=== PATIENT | female | born 1995 | race Two or more races ===

== ENCOUNTER → 2017-10-20 | Outpatient (CLI) | payer OTHER | LOC: LAB 14:25 | PROVIDERS: ATTEND Obstetrics & Gynecology | DX: Z34.91 Encounter for supervision of normal pregnancy, unspecified, first trimester (principal) | CPT/HCPCS: 36415; 81001; 86592; 86703; 86762; 86850; 86900; 86901; 87088; 87340 ==

== ENCOUNTER → 2017-10-28 | Outpatient (CLI) | payer OTHER | LOC: LAB 14:35 | PROVIDERS: ATTEND Student in an Organized Health Care Education/Training Program | DX: Z34.91 Encounter for supervision of normal pregnancy, unspecified, first trimester (principal) | CPT/HCPCS: 36415; 85027; 87491; 87591 ==

== ENCOUNTER → 2018-01-12 | Outpatient (CLI) | payer OTHER ==
[~2018-01-12] MED LIST: FLU60VIA41 IM
--- NOTE | 2018-01-12 15:28 | RADIOLOGY IMAGING REPORT ---
FACILITY: [facility] PATIENT NAME: Geni Ray : 1995 MR: [id number] V: [id number] EXAM DATE: ORDERING PHYSICIAN: NILS HOUSE TECHNOLOGIST: Location: [facility] Patient: Geni Ray : 1995 Visit/Account:[id number] Date of Sevice: 01/12/2018 [facility] OB ANATOMICAL SURVEY INDICATION: supervision COMPARISON: None available FINDINGS: There is a single, living, intrauterine gestation in vertex position with heart rate of 155 bpm. The placenta is posterior without previa. JESÚS 12 cm, largest pocket 3.6 cm. BPD 4.9 cm, 21 weeks zero days Head circumflex conference 18.5 cm, 21 weeks zero days Abdominal circumference 15.5 cm, 20 weeks five days Femur length 3.3 cm, 20 weeks three days Estimated gestational age based on ultrasound 20 weeks six days. Estimated gestational age based on last menstrual period 20 weeks four days. Estimated weight 362 g. Normal outflow tracts, normal four-chamber heart view, normal stomach, normal bladder, expected three -vessel cord, normal kidneys, four extremities visualized, normal cord insertion, normal intracranial structures, normal facial profile, and normal spine. IMPRESSION: Single, living, intrauterine gestation at 20 weeks six days based on ultrasound. Estimated gestation al age based on last menstrual period is 20 weeks four days. Normal anatomic survey. Posterior placenta without previa. Report Dictated By: Nate Villatoro MD at 01/12/2018 3:21 PM Report E-Signed By: Nate Villatoro MD at 01/12/2018 3:25 PM WSN:TEGAN
== END ==
LOC: US 09:52
PROVIDERS: ATTEND Student in an Organized Health Care Education/Training Program
DX: Z02.9 Encounter for administrative examinations, unspecified (principal)

== ENCOUNTER → 2018-03-18 | Outpatient (CLI) | payer OTHER ==
[~2018-03-18] MED LIST changes: +DIPH0.5D12 IM
[2018-03-18 11:23] LABS: PLATELET COUNT, AUTOMATED 256 K/uL (150-450)
== END ==
LOC: LAB 09:24
PROVIDERS: ATTEND Student in an Organized Health Care Education/Training Program
DX: Z34.92 Encounter for supervision of normal pregnancy, unspecified, second trimester (principal)
CPT/HCPCS: 36415; 82950; 85025

== ENCOUNTER → 2018-03-19 | Outpatient (CLI) | payer OTHER | LOC: LAB 07:40 | PROVIDERS: ATTEND Student in an Organized Health Care Education/Training Program | DX: O99.810 Abnormal glucose complicating pregnancy (principal) | CPT/HCPCS: 36415; 82951; 82952 ==

== ENCOUNTER → 2018-05-05 | Outpatient (CLI) | payer OTHER ==
[~2018-05-05] MED LIST changes: +PREN-127 PO
== END ==
LOC: LAB 15:47
PROVIDERS: ATTEND Advanced Practice Midwife
DX: Z36.85 Encounter for antenatal screening for Streptococcus B (principal)
CPT/HCPCS: 87081

== ENCOUNTER 2018-05-14 05:59 | Inpatient (IN) | payer OTHER ==
[~2018-05-14] VITALS: Ht 157.5 cm; Wt 68.0 kg
[2018-05-14 06:20] VITALS: BP 130/84; Ht 157.5 cm; Wt 68.0 kg
[2018-05-14] MEDS ORDERED: OXYTOCIN 30 UNIT/D5LR 500 ML 500 ML ONE (06:31)
[2018-05-14] MEDS ORDERED: LIDOCAINE 1% LOCAL 300 MG/30ML INJ PRN (06:35)
[2018-05-14] MEDS ORDERED: METOCLOPRAMIDE 10 MG/2 ML SDV IVP PRN (06:35)
[2018-05-14] MEDS ORDERED: fentaNYL CITR 100 MCG/2 ML AMP IVP PRN (06:35)
[2018-05-14] MEDS ORDERED: OXYTOCIN 30 UNIT/D5LR 500 ML 500 ML IV PRN ×2 (06:35→06:48)
[2018-05-14] MEDS ORDERED: FAMOTIDINE(*) 20MG/50ML PREMIX 50 ML IVPB PRN (06:35)
[2018-05-14] MEDS ORDERED: LIDOCAINE/SOD BICARB 8.4% SYR SC PRN (06:35)
[2018-05-14] MEDS ORDERED: ceFAZolin(*) 2GM/D5W 50ML 50 ML IVPB PRN (06:35)
[2018-05-14] MEDS ORDERED: ACETAMINOPHEN 500 MG TAB PO PRN (06:50)
[2018-05-14] MEDS ORDERED: CALCIUM CARBONATE 500 MG CHEW PO PRN (06:50)
[2018-05-14] MEDS ORDERED: ONDANSETRON 4 MG/2 ML VIAL IVP PRN (06:50)
[2018-05-14] MEDS: LR(*) 1000 ML BAG 1,000 ML IV PRN ×2 (06:52→08:57)
[2018-05-14 07:06] LABS: PLATELET COUNT, AUTOMATED 243 K/uL (150-450)
[2018-05-14] MEDS ORDERED: LIDO/EPI 2% MPF 1:200,000 20ML EPI PRN (07:15)
[2018-05-14] MEDS ORDERED: FENTANYL/ROPIVACAINE 100 ML BAG EPI PRN (07:15)
[2018-05-14] MEDS ORDERED: BUPIVACAINE 0.5% INJ 30ML VIAL EPI PRN (07:15)
[2018-05-14] MEDS ORDERED: LIDOCAINE/PF 2% 200MG/10ML AMP 200 MG/10 ML AMPUL EPI PRN (07:15)
[2018-05-14] MEDS ORDERED: fentaNYL CITR 100 MCG/2 ML AMP IT PRN (07:15)
[2018-05-14] MEDS ORDERED: BUPIVACAINE 0.25% MPF INJ EPI PRN (07:15)
--- NOTE | 2018-05-14 09:11 | Anesthesia OB Pre-Anes Eval ---
History of Present Illness Anesthesia Start Date: May 14, 2018 Anesthesia Start Time: 08:28 OB Anesthesia Diagnosis: spontaneous labor EDC: May 28, 2018 : 1 Para: 0 Vital Signs: Vital Signs Date Time Temp Pulse Resp B/P (MAP) Pulse Ox O2 Delivery O2 Flow Rate FiO2 05/14/18 06:20 98.0 80 18 130/84 (99) 95 Room Air Pain Ratin Result Diagram: 05/14/18 0641 Height (Inches): 62.00 Weight (Pounds): 150 Past Medical History Medical History: no pertinent history Surgical History: no surgical history Attended Childbirth Classes?: No Hx Anesthesia Reactions: No Hx Family Anesthesia Reaction: No Current Medications: pitocin Home Meds Reported Medications Vits W-Ca,Fe,Fa(<1MG) ( VITAMINS) 1 Each Tablet, 1 EACH PO DAILY, TAB 05/05/18 Allergies: Coded Allergies: aspirin (Unverified Allergy, Mild, Facial swelling, 10/20/17) Anesthesia OB ROS Neurological: No migraines/headaches, No seizures, No neuropathy, No other ENT: Denies Tooth caps, Denies Loose teeth, Denies Chipped teeth, Denies Dentures, Denies Bridges, Denies Retainers, Denies Veneers, Denies Implants, Denies Tongue ring, Denies Other Pulmonary: No asthma, No smoker (pks/day/yrs), No other Airway Class: ll Cardiovascular ROS: No edema, No arrhythmia, No other GI ROS: clear liquids ROS: No Herpes, No STD(s), No Liver Disease, No Renal Disease, No Other Endocrine ROS: No diabetes, No gestational diabetes, No thyroid disorder, No other Musculoskeletal ROS: No low back pain, No low back injury, No scoliosis, No other ASA Classification: 1 Assessment and Plan Anesthesia Plan: CHANDU LORENZANA CRNA May 14, 2018 09:11
--- NOTE | 2018-05-14 09:12 | Procedure Note ---
Anesthetic Placement Note Anesthesia Plan: LEB Permit for Anesthesia Signed: Yes Anesthesia Technique: Patient Sitting Anesthesia Prep: Chlorhexidine Interspace: L 4-5 Local Anesthetic: 1% Lidocaine, 25 Gauge Needle Amount Local - cc's: 3 Anesthesia Needle: 17g Touhy/Schliff Anesthesia Attempts: 1 Loss of Resistance: Normal Saline Depth of GINI (cm): 5 Epidural Needle Placement: No CSF, No Blood, No Parasthesia Intrathecal Needle: 27 Gauge Pencan Cerebral Spinal Fluid: Yes, Clear Catheter Insertion (cm): 5 Catheter Type: Harmon - Spring Wound Epidural Dressing: Tegaderm, Tape Anesthesia Tray: Lot Number ([id number]), Expiration Date (11/01/2019), Reference Number ([id number]) CHANDU POWER CRNA May 14, 2018 09:12
--- NOTE | 2018-05-14 10:04 | History & Physical ---
History of Present Illness Age of Patient: 22 : 1 Para or TPAL: 0 EDC per LMP: May 28, 2018 Estimated Gestational Age: 38 Chief Complaint Pt reports a gush of fluid and clear leaking of clear fluid starting at 3:30 this am, with some contractions, but nothing too painful. Good FM and no VB. Denies GRUBBS, vision changes or RUQ pain. Her Matti is here and very supportive. Her plan is for an epidural. History Patient's Blood Type: O Positive Rubella Status: Immune Group B Strep Screen: Negative Allergies: Coded Allergies: aspirin (Unverified Allergy, Mild, Facial swelling, 10/20/17) Social History: Denies alcohol, smoking, or illicit drugs including marijuana. Family History: Patient reports no known family medical history. Med Rec Home Meds Reported Medications Vits W-Ca,Fe,Fa(<1MG) ( VITAMINS) 1 Each Tablet, 1 EACH PO DAILY, TAB 05/05/18 Review of Systems Neurological: No Dizziness Eyes: No Vision Change Cardiovascular: No Chest Pain Respiratory: No Shortness of Breath Gastrointestinal: No Nausea, No Vomiting, No Diarrhea Musculoskeletal: Pain (mild uterine contraction pain on admit) Psychiatric: No Depression, No Anxiety Exam General Exam Vital Signs Vital Signs Date Time Temp Pulse Resp B/P (MAP) Pulse Ox O2 Delivery O2 Flow Rate FiO2 05/14/18 06:20 98.0 80 18 130/84 (99) 95 Room Air General Apperance: Alert/Awake/No Acute Distress Neuro: No Gross deficits Eyes: Normal Extraocular Movement & Vison ENT: Normal Cardiovascular: Regular Rate and Rhythm Respiratory: No Respiratory Distress, Clear to Auscultation Abdomen: Gravid - Non-Tender, RUQ Non-Tender : Normal Musculoskeletal: No Weakness/Pain Extremities: No Cyanosis,Clubbing or Edema Integumentary: Skin Intact without Lesions or Rash Psychological: Alert & Oriented X3, Appropriate Mood & Affect Cervical Dialation: 5 Cervical Effacement (%): 80 Cervical Consistency: Soft Cervical Position: Mid Station: -1 Presentation: Vertex Uterine Contractions(Q min): 3 Uterine Contraction Strength: Moderate Fetus Feeling Movement?: Yes Estimated Weight(grams): 3000 Heart Tones: 140 Heart Tone Variabilty: Moderate FHT Accelerations: 15X15 FHT Decelerations: Early, Variable (rapid return to baseline) FHT Category: II Medical Decision Making Data Points Result Diagram: 05/14/18 0641 Assessment and Plan Hospital Day: 1 ENVIRONMENTAL ECONOMIST Assessment: Stable ENVIRONMENTAL ECONOMIST Plan: Routine Labor/Induct Care Problems: (1) ROM (rupture of membranes), premature Onset Date: ~ 05/07/2018 Status: Acute Assessment & Plan: Assessment/Plan: GABY is a 22 y.o. at 38w0d wks with an Estimated Date of Delivery: 05/28/18 dated by first trimester US. She was admitted this am for SROM for clear fluid at home at 3:30am and was started on Pitocin to promote labor progression Labor state: Approaching active labor, good cervical change since admit. Encourage position changes with peanut ball for descent. Continue Pitocin titration for adequate contraction pattern and cervical change well-being: Category II FHT for recurrent variables and early dec elerations. Continuous monitoring for epidural and Pitocin. Fluid bolus and maternal oxygen PRN Maternal well-being: VSS, normotensive, afebrile, SROM at home at 3:30am for moderate amount of clear fluid with continued leaking. PNL: GBS neg, Type/Rh O+, rubella immune Pain Management: Pt requests ISABEL for pain management, completely comfortable after placement, aromatherapy in room Feed: Breast PPBCM: Unsure at this time, but they are contemplating the Mirena or Kayleena IUD c/b: none Anticipate , re-evaluate in 2-3 hours or PRN Problem Qualifiers (1) ROM (rupture of membranes), premature: PROM onset of labor timing: onset of labor within 24 hours of rupture PROM gestational age: full term Qualified Codes: O42.02 - Full-term premature ru pture of membranes, onset of labor within 24 hours of rupture ML DICKERSON CNM May 14, 2018 10:04
--- NOTE | 2018-05-14 11:12 | Labor Progress Note ---
Labor Subjective Progress Notes Subjective Pt and are trying to rest. Called to room for evaluation after a prolonged deceleration. FHR back to baseline after responding well to maternal oxygen and fluid bolus. Pt feeling some pelvic pressure, but not continuous. Feeling Movement?: Yes Vaginal Discharge/Fluid: Bloody Show, Clear Fluid, Moderate Amount Labor Pain: Comfortable Neurological: No Headache Eyes: No Visual Disturbances Labor Objective Vital Signs Vital Signs Date Time Temp Pulse Resp B/P (MAP) Pulse Ox O2 Delivery O2 Flow Rate FiO2 05/14/18 06:20 98.0 80 18 130/84 (99) 95 Room Air Vaginal Discharge/Fluid?: Bloody Show, Clear Fluid, Small Amount Cervical Dialation: 7 Cervical Effacement (%): 90 Cervical Consistency: Soft Cervical Position: Anterior Station: 0 Presentation: Vertex Uterine Contractions(Q min): 3 Uterine Contraction Strength: Strong UC Resting Tone: Soft Fetus Estimated Weight(grams): 3000 Heart Tones: 140 Heart Tone Variabilty: Moderate FHT Accelerations: Present, 15X15 FHT Decelerations: Early, Variable, Prolonged (return to baseline after maternal oxygen, fluid bolus and position change) FHT Category: II General Exam General Appearance: Alert/Awake/No Acute Distress : Normal Psychological: Alert & Oriented X3, Appropriate Mood & Affect Other Result Diagram: 05/14/18 0641 Assessment and Plan Problems: (1) ROM (rupture of membranes), premature Onset Date: ~ 05/07/2018 Status: Acute Assessment & Plan: Assessment/Plan: GABY is a 22 y.o. at 38w0d wks with an Estimated Date of Delivery: 05/28/18 dated by first trimester US. She was admitted this am for SROM for clear fluid at home at 3:30am and was started on Pitocin to promote labor progression Labor state: Active labor, rapid cervical change in 1 hour. Continue to encourage position changes with peanut ball for descent. Continue Pitocin titration for adequate contraction pattern well-being: Category II FHT for recurrent variables and early decelerations. One prolonged deceleration, but recovered well with maternal oxygen, fluid bolus and position change. Continuous monitoring for e pidural and Pitocin. Fluid bolus and maternal oxygen PRN Maternal well-being: VSS, normotensive, afebrile, SROM at home at 3:30am for moderate amount of clear fluid with continued leaking. PNL: GBS neg, Type/Rh O+, rubella immune Pain Management: Comfortable with ISABEL, aromatherapy in room Feed: Breast PPBCM: Unsure at this time, but they are contemplating the Mirena or Kayleena IUD c/b: none Anticipate , re-evaluate in 2-3 hours or PRN Problem Qualifiers (1) ROM (rupture of membranes), premature: PROM onset of labor timing: onset of labor within 24 hours of rupture PROM gestational age: full term Qualified Codes: O42.02 - Full-term premature ru pture of membranes, onset of labor within 24 hours of rupture ML DICKERSON CNM May 14, 2018 11:12
--- NOTE | 2018-05-14 11:22 | Anesthesia Progress Note ---
Progress/Maintenance Anesthesia Note Date: May 14, 2018 Anesthesia Note Time: 11:21 Pain Intensity: 0 Pump: On Pump Rate (ML/HR): 6 Sensory Level: T10 Motor Level: Bending Knees-Bilateral Dilatation: 7 Position: Right, Tilt Assessment and Plan Anesthesia Plan: CHANDU LORENZANA CRNA May 14, 2018 11:22
--- NOTE | 2018-05-14 14:13 | Anesthesia Progress Note ---
Progress/Maintenance Anesthesia Note Date: May 14, 2018 Anesthesia Note Time: 14:12 Pain Intensity: 0 Pump: Off Assessment and Plan Anesthesia Plan: LEB Anesthesia Stop Day: May 14, 2018 Anesthesia Stop Time: 13:43 CHANDU POWER CRNA May 14, 2018 14:13
--- NOTE | 2018-05-14 14:13 | OB Delivery Note ---
Delivery Note Vaginal Delivery Type: Spont. Vaginal Delivery Delivery Date: May 14, 2018 Delivery Time: 13:43 Estimated Gestational Age(wks): 38 Delivery Anesthesia: Epidural Sex: Male Infant Weight (gms): 3020 Mason Apgars: 1 Minute, 5 Minute Repair Needed: Laceration, Vaginal, 2nd Degree Notes: AN is a 22 y/o G1 now P1 @ 38 0/7 by first trimester US with an SID of 05/28/18 who was admitted to the family care unit on 05/14/18 @ 630 am after SROM at home for a clear large amount of fluid with continued leaking after that point. Contractions started shortly after, but were mild and irregular. Pitocin was started and titrated to increase frequency and intensity of contraction pattern. Cervical exam on admission was /-2 by the RN. Pt was GBS neg. FHR was CAT I primarily throughout first stage, with periods of CAT II due to recurrent variables with contractions. Pt utilized continuous lumbar epidural primarily for pain management. Pt was completely dilated on 05/14/18 at 1306 and pt began pushing at that time with excellent maternal effort and descent. At 1343 pt had a NSVB of live male with APGARs 7/8, weighing 3020g. The head delivered spontaneously in the OA position and restituted GER with no nuchal cord. The anterior shoulder was delivered a traumatically and the posterior shoulder followed. Body delivered easily. Face was wiped with nose and bulb suction and then placed on the maternal abdomen. The was dried and stimulated and noted to have a quiet spontaneous cry and spontaneous movement of all 4 extremities. Baby was stimulated and noted to have good tone, but not much of a cry. The cord was then clamped X 2 by CNM at 3 minutes and cut by patient's spouse, so baby could be brought to the warmer to be assessed. Mother was in SF position. At 1349 the placenta and membranes delivered spontaneous and intact with a 3 vessel cord after gentle downward traction. 30 units of Pitocin was placed in 500cc IV to firm the uterus and started immediately after placenta delivery. Upon inspection of the perineum a second degree vaginal laceration was noted and repaired using 3-0 Vicryl under ISABEL. Hemostasis observed.EBL 250 with fundus firm with minimal bleeding. Mom and baby were skin to skin in stable condition when I left the room. "I personally examined the patient and there are no unintended foreign objects in the vagina and all sponge, needle and lap counts were correct." Rosana Unger CNM was present throughout the entire delivery as well as Dr. Jatin Nuno. Shop And Alteration Tailor in Attendence: ROSANA Sheets CNM May 14, 2018 14:13
--- NOTE | 2018-05-14 14:14 | Labor Progress Note ---
Labor Subjective Progress Notes Subjective Pt just delivered. Feeling Movement?: Yes Vaginal Discharge/Fluid: Clear Fluid Labor Pain: Mild Neurological: No Headache, No Other Eyes: No Visual Disturbances Labor Objective Vital Signs Vital Signs Date Time Temp Pulse Resp B/P (MAP) Pulse Ox O2 Delivery O2 Flow Rate FiO2 05/14/18 06:20 98.0 80 18 130/84 (99) 95 Room Air Cervical Dialation: 10 Cervical Effacement (%): 100 Cervical Consistency: Soft Cervical Position: Anterior Station: +3 Presentation: Vertex Other Result Diagram: 05/14/18 0641 Assessment and Plan Problems: (1) ROM (rupture of membranes), premature Onset Date: ~ 05/07/2018 Status: Acute Assessment & Plan: I was present for Delivery by Mckenna Unger CNM.. Live born male infant. Problem Qualifiers (1) ROM (rupture of membranes), premature: PROM onset of labor timing: onset of labor within 24 hours of rupture PROM gestational age: full term Qualified Codes: O42.02 - Full-term premature rupture of membranes, onset of labor within 24 hours of rupture NILS HOUSE DO May 14, 2018 14:14
[2018-05-14] MEDS ORDERED: BENZOCAINE 20% 60 ML BTL TP PRN (14:15)
[2018-05-14] MEDS ORDERED: APAP/HYDROCODONE 325/5 TAB PO PRN (14:15)
[2018-05-14] MEDS ORDERED: LANOLIN OINT 7 GM TUBE TP PRN (14:15)
[2018-05-14] MEDS ORDERED: HYDROCORTISONE 2.5% CR 30GM TB PR PRN (14:15)
[2018-05-14] MEDS ORDERED: MAGNESIUM HYDROXIDE* 30ML UDCP PO PRN (14:15)
[2018-05-14] MEDS ORDERED: GLYCERIN/WITCH HAZEL LEAF 1 PK TP PRN (14:15)
[2018-05-14] MEDS: ACETAMINOPHEN 325 MG TAB PO PRN (15:07)
[2018-05-14 15:36] VITALS: BP 127/74
[2018-05-14] MEDS: IBUPROFEN 800 MG TAB PO SCH (17:03)
[2018-05-14 19:23] VITALS: BP 126/61
[2018-05-14] MEDS: DOCUSATE CALCIUM 240 MG CAP PO SCH (20:30)
[2018-05-14 22:57] VITALS: BP 129/68
[2018-05-15] MEDS: IBUPROFEN 800 MG TAB PO SCH ×3 (01:58→18:05)
[2018-05-15 03:02] VITALS: BP 129/68
[2018-05-15 09:00] VITALS: BP 121/77
[2018-05-15] MEDS ORDERED: DIPHTH/TETANUS/ACEL. PERTUSSIS IM ONLY ONE (09:00)
[2018-05-15] MEDS ORDERED: INFLUENZA VIRUS VAC 0.5ML SYR IM ONLY ONE (09:00)
[2018-05-15] MEDS ORDERED: MEASLES,MUMP,RUBELLA VAC 0.5ML SUBQ ONE (09:00)
[2018-05-15] MEDS: DOCUSATE CALCIUM 240 MG CAP PO SCH (09:09)
--- NOTE | 2018-05-15 09:14 | Anesthesia Post Eval Note ---
Anesthesia Post Eval Note Vital Signs Date Time Temp Pulse Resp B/P (MAP) Pulse Ox O2 Delivery O2 Flow Rate FiO2 05/15/18 03:02 97.3 70 15 129/68 (88) 97 Room Air Pt able to participate in Eval: Yes Cardiovascular Status: Satisfactory Respiratory Status: Satisfactory Pain Managment: Satisfactory PO Nausea/Vomiting: Satisfactory Temperature Management: Satisfactory Mental Status: Satisfactory, Alert, Oriented X3 Post-Op Hydration Status: Satisfactory, Tolerating PO Well, Voiding w/o Difficulty Anesthesia Type: LEB Anesthesia Tolerance: no complications noted. CHANDU POWER CRNA May 15, 2018 09:14
--- NOTE | 2018-05-15 10:26 | OB/GYN Progress Note ---
OB Subjective Progress Notes GI: POS Flatus; NEG Nausea, NEG Vomiting, NEG Bowel Movement : Voiding Well, Vaginal Bleeding, Moderate Pain: Mild Neurological: No Headache Eyes: No Visual Disturbances OB Objective Physical Exam Vital Signs Date Time Temp Pulse Resp B/P (MAP) Pulse Ox O2 Delivery O2 Flow Rate FiO2 05/15/18 09:00 97.7 90 16 121/77 (92) 96 Room Air Intake and Output 05/15/18 07:00 Intake Total 1620 ml Output Total 1400 ml Balance 220 ml Intake Oral 220 ml IV Total 1400 ml Output Urine Total 1400 ml # Voids 3 General Appearance: Alert/Awake/No Acute Distress Neurological: No Gross deficits Eyes: Normal Extraocular Movement & Vison Respiratory: No Respiratory Distress : Normal Extremities: No Cyanosis,Clubbing or Edema Integumentary: Skin Intact without Lesions or Rash Psychological: Alert & Oriented X3, Appropriate Mood & Affect Result Diagram: 05/15/18 0605 Assessment and Plan Problems: (1) ROM (rupture of membranes), premature Onset Date: ~ 05/07/2018 Status: Resolved (2) (normal spontaneous vaginal delivery) Status: Resolved (3) Second degree perineal laceration during delivery Assessment & Plan: Healing well with good approximation. Encouraged to use genesis bottle and dabbing when wiping and use ibuprofen for pain. (4) care and examination Problem Qualifiers (1) ROM (rupture of membranes), premature: PROM onset of labor timing: onset of labor within 24 hours of rupture PROM gestational age: full term Qualified Codes: O42.02 - Full-term premature rupture of membranes, onset of labor within 24 hours of rupture ML DICKERSON CNM May 15, 2018 10:26
[2018-05-15 13:12] VITALS: BP 118/76
[2018-05-15 16:40] VITALS: BP 124/84
[2018-05-15 19:30] VITALS: BP 123/71
[2018-05-15 23:10] VITALS: BP 131/86
[2018-05-16] MEDS: IBUPROFEN 800 MG TAB PO SCH ×2 (02:45→09:24)
[2018-05-16 02:47] VITALS: BP 119/63
[2018-05-16 07:40] VITALS: BP 121/73
[2018-05-16] MEDS ORDERED: DOCU240C67 PO (08:43)
[2018-05-16] MEDS ORDERED: LOR5/325 PO (08:43)
[2018-05-16] MEDS ORDERED: IBUP800T37 PO (08:43)
[2018-05-16] MEDS: DOCUSATE CALCIUM 240 MG CAP PO SCH ×2 (09:00→09:04)
[2018-05-16] MEDS: ACETAMINOPHEN 325 MG TAB PO PRN (09:04)
--- NOTE | 2018-05-16 09:12 | OB/GYN Progress Note ---
OB Subjective Progress Notes Subjective Ms. Ray reports that she is feeling well this am. She reports that is going well. She states that she is having mild cramping, relieved with ibuprofen. She denies having perineal pain. She reports that her mood is good. Denies symptoms of post- depression. Plan is for Alexander () to have circumcision today. His bilirubin levels are also being monitored. He may be able to go home today. If not, Ms. Ray and her would like to room-in with him. GI: POS Flatus; NEG Nausea, NEG Vomiting, NEG Bowel Movement : Voiding Well, Vaginal Bleeding, Scant Pain: Mild, Tolerating PO Pain Meds Neurological: No Headache, No Other Eyes: No Visual Disturbances OB Objective Physical Exam Vital Signs Date Time Temp Pulse Resp B/P (MAP) Pulse Ox O2 Delivery O2 Flow Rate FiO2 05/16/18 07:40 98.2 82 16 121/73 (89) 95 Room Air Intake and Output 05/16/18 07:00 Intake Total 360 ml Balance 360 ml Intake Oral 360 ml # Voids 1 General Appearance: Alert/Awake/No Acute Distress Neurological: No Gross deficits Eyes: Normal Extraocular Movement & Vison Cardiovascular: Regular Rate and Rhythm Respiratory: No Respiratory Distress, Clear to Auscultation Abdomen: Soft, Non-Tender, Non-Distended, Fundus Firm, Non-Tender : Normal Extremities: No Cyanosis,Clubbing or Edema Integumentary: Skin Intact without Lesions or Rash Psychological: Alert & Oriented X3, Appropriate Mood & Affect Result Diagram: 05/15/18 0605 Assessment and Plan Post Day: 2 Hospital Day: 3 COMPLIANCE MONITOR Assessment: Stable COMPLIANCE MONITOR Plan: Routine Post- Care, Discharge Home Today Problems: (1) care and examination Status: Acute Assessment & Plan: 22yo PPD #2 s/p c/b 2nd degree laceration. . Doing well. No evidence of post- depression. Partner, Matti, supportive. Plan: 1. discharge to home or rooming in status today 2. discharge meds explained to patient and her 3. long discussion regarding , warning signs, available community support 4. long discussion regarding post- depression/anxiety, warning signs and available support 5. long discussion about expectations regarding post- vaginal bleeding 6. discussed pelvic rest for at least 6 weeks post-, discussed genesis- care/wound care 7. discussed resumption of sexual activity/libido post- 8. all questions answered 9. post- visit 6 weeks, sooner if needed SHARLENE LAMAR MD May 16, 2018 09:12
--- NOTE | 2018-05-16 09:13 | OB/GYN Discharge Summary ---
Discharge Summary Reason for Hosp/Final Diag: (1) care and examination Status: Acute Hospital Course & Plan: 22yo PPD #2 s/p c/b 2nd degree laceration. . Doing well. No evidence of post- depression. Partner, Matti, supportive. Plan: 1. discharge to home or rooming in status today 2. discharge meds explained to patient and her 3. long discussion regarding , warning signs, available community support 4. long discussion regarding post- depression/anxiety, warning signs and available support 5. long discussion about expectations regarding post- vaginal bleeding 6. discussed pelvic rest for at least 6 weeks post-, discussed genesis-car e/wound care 7. discussed resumption of sexual activity/libido post- 8. all questions answered 9. post- visit 6 weeks, sooner if needed Lates Vital Signs Vital Signs Date Time Temp Pulse Resp B/P (MAP) Pulse Ox O2 Delivery O2 Flow Rate FiO2 05/16/18 07:40 98.2 82 16 121/73 (89) 95 Room Air Weight (Pounds): 150 Result Diagram: 05/15/18604 Condition: Improved Discharge: Home, Self Longterm Meds Active Scripts Docusate Calcium (DOCUSATE CALCIUM) 240 Mg Capsule, 240 MG PO BID for 30 Days, #60 CAPSULE 1 Refill Prov:SHARLENE LAMAR MD 05/16/18 Hydrocodone Bit/Acetaminophen (HYDROCODON-ACETAMINOPHEN 5-325) 1 Each Tablet, 1- 2 EACH PO Q4H PRN for PAIN for 7 Days, #30 TAB Prov:SHARLENE LAMAR MD 05/16/18 Ibuprofen (IBUPROFEN) 800 Mg Tablet, 800 MG PO 0200,1000,1800 PRN for PAIN for 28 Days, #90 TAB 1 Refill Prov:SHARLENE LAMAR MD 05/16/18 Reported Medications Vits W-Ca,Fe,Fa(<1MG) ( VITAMINS) 1 Each Tablet, 1 EACH PO DAILY, TAB 05/05/18 Follow up with: [facility] [place] [phone] Follow up in: 6 wks PP or PO Discharge Diet: As Tolerates Discharge Activity: Pelvic Rest SHARLENE LAMAR MD May 16, 2018 09:13
[2018-05-16 11:20] VITALS: BP 113/58
== END 2018-05-16 11:45 | disposition home or self-care (01) | DRG 807 ==
LOC: OB 05:59
PROVIDERS: ADMIT Student in an Organized Health Care Education/Training Program; ATTEND Student in an Organized Health Care Education/Training Program
PROC: 10E0XZZ Delivery of Products of Conception, External Approach (ICD-10-PCS; principal; 2018-05-14)
PROC: 0KQM0ZZ Repair Perineum Muscle, Open Approach (ICD-10-PCS; 2018-05-14)
DX: O42.02 Full-term premature rupture of membranes, onset of labor within 24 hours of rupture (principal); Z37.0 Single live birth; O76 Abnormality in fetal heart rate and rhythm complicating labor and delivery; O70.1 Second degree perineal laceration during delivery; Z3A.38 38 weeks gestation of pregnancy
CPT/HCPCS: 36415; 85025; 85027; 86850; 86900; 86901; J2590; J3010; J7120; S0020